=== PATIENT | female | born 1975 | race Caucasian/White ===

== ENCOUNTER 2018-06-01 19:40 | Emergency (ER) | payer SELFPAY ==
[~2018-06-01] VITALS: Ht 157.4 cm; Wt 156.0 kg
[~2018-06-01 19:40] MED LIST: BACTRIM DS 8001 TA1 PO; CEPHALEXIN500 M1 PO; CIPROFLOXACIN500 MG PO; COMPAZINE10 MG PO; CONTRAVE1 TER PO; CORTISPORIN SUS10 ML OT; DARVOCET N 1001 TAB PO; FLONASE ALLERG9.9 ML NAS; Fioricet 325 MG1 TAB PO; HYDROCODONE BIT1 T11 PO; NORCO 5-325 TA1 EACH PO; ZYRTEC10 MG PO
== END 2018-06-01 21:33 | disposition home or self-care (01) ==
LOC: ED 19:40
DX: G43.909 Migraine, unspecified, not intractable, without status migrainosus (principal)

== ENCOUNTER 2018-07-22 14:36 | Emergency (ER) | payer SELFPAY ==
[~2018-07-22] VITALS: Ht 157.4 cm; Wt 153.3 kg
[2018-07-22 15:06] LABS: BASO % 0.4 % (0.0-1.0); EOS # 0.1 10*3/uL (0.0-0.4); EOS % 1.4 % (1.0-4.0); HEMATOCRIT 42.8 % (37.0-47.0); HEMOGLOBIN 14.2 g/dl (12.0-16.0); LYMPH % 28.6 % (27.0-41.0); MEAN CORPUSCULAR HGB 30.9 pg (27.0-31.0); MEAN CORPUSCULAR HGB CONC 33.2 g/dl (33.0-37.0); MONO # 0.7 10*3/uL (0.1-1.0); MONO % 9.4 % (3.0-9.0); NEUT # 4.2 10*3/uL (2.3-7.9); NEUT % 59.9 % (47.0-73.0); PLATELET COUNT AUTOMATED 267 10*3/uL (130-400); RED CELL DISTRI WIDTH 13.2 % (0-14.5)
[2018-07-22 15:17] LABS: BILIRUBIN NEGATIVE (NEGATIVE); BLOOD TRACE-INTACT (NEGATIVE); CLARITY SL CLOUDY (CLEAR); COLOR YELLOW (YELLOW); GLUCOSE NEGATIVE (NEGATIVE); KETONE 1+ (NEGATIVE); LEUKO ESTERASE NEGATIVE (NEGATIVE); NITRITE NEGATIVE (NEGATIVE); PH 5.5 (5.0-9.0); SPECIFIC GRAVITY 1.015 (1.005-1.030); UROBILINOGEN 0.2 E.U./dl (0.2-1.0)
[2018-07-22 15:26] LABS: ALBUMIN 3.9 gm/dl (3.1-4.5); ALKALINE PHOSPHATASE 80 U/L (45-117); BUN 11 mg/dl (7-24); CHLORIDE 106 mmol/L (98-107); CREATININE 0.78 mg/dL (0.55-1.02); LIPASE 70 U/L (73-393); POTASSIUM 3.7 mmol/L (3.5-5.1); SGOT/AST 19 IU/L (3-35); SGPT/ALT 36 U/L (12-78); SODIUM 140 mmol/L (136-145); TOTAL PROTEIN 7.6 gm/dL (6.4-8.2)
[2018-07-22 15:56] LABS: BACTERIA 2+; EPITHELIAL CELLS 16-20
[2018-07-22] MEDS ORDERED: NAPROSYN500 MG PO (16:23)
[2018-07-22] MEDS ORDERED: ZOFRAN4 MG PO (16:23)
== END 2018-07-22 16:27 | disposition home or self-care (01) ==
LOC: ED 14:36
PROVIDERS: Nurse Practitioner Family
DX: K42.9 Umbilical hernia without obstruction or gangrene (principal); R03.0 Elevated blood-pressure reading, without diagnosis of hypertension; G43.909 Migraine, unspecified, not intractable, without status migrainosus; Z79.2 Long term (current) use of antibiotics; Z79.899 Other long term (current) drug therapy

== ENCOUNTER → 2018-12-14 | Outpatient (CLI) | payer SELFPAY ==
[~2018-12-14] MED LIST changes: +Motrin,Rufen800 MG PO; +NAPROSYN500 MG PO; +ROBAXIN500 M1 PO; +SEPTDS PO; +VIIBRYD10 M1 PO; +ZOFRAN4 MG PO
== END | disposition home or self-care (01) ==
LOC: RESCLI 01:17
DX: M54.31 Sciatica, right side (principal); G43.109 Migraine with aura, not intractable, without status migrainosus; K46.9 Unspecified abdominal hernia without obstruction or gangrene; F41.1 Generalized anxiety disorder; F41.0 Panic disorder [episodic paroxysmal anxiety]; M79.7 Fibromyalgia; E66.01 Morbid (severe) obesity due to excess calories; K21.9 Gastro-esophageal reflux disease without esophagitis

== ENCOUNTER → 2019-04-27 | Outpatient (CLI) | payer SELFPAY | END | disposition home or self-care (01) | LOC: RAD 16:24 | DX: M79.642 Pain in left hand (principal) ==

== ENCOUNTER 2019-09-06 09:23 | Emergency (ER) | payer SELFPAY ==
[~2019-09-06] VITALS: Ht 157.4 cm; Wt 141.1 kg
[2019-09-06] MEDS ORDERED: DOXYCYCLINE100 M3 PO (10:56)
[2019-09-06] MEDS ORDERED: TESSALON PERLE100 M1 PO (10:56)
[2019-09-06] MEDS ORDERED: PROVENTIL HFA6.7 GM INH (10:56)
== END 2019-09-06 11:54 | disposition home or self-care (01) ==
LOC: ED 09:23
DX: J40 Bronchitis, not specified as acute or chronic (principal); Z79.899 Other long term (current) drug therapy

== ENCOUNTER → 2020-11-22 | Outpatient (CLI) | payer OTHER ==
[~2020-11-22] MED LIST changes: +DOXYCYCLINE100 M3 PO; +PROVENTIL HFA6.7 GM INH; +TESSALON PERLE100 M1 PO
[2020-11-22 15:10] LABS: BASO % 0.5 % (0.0-1.0); EOS # 0.2 10*3/uL (0.0-0.4); EOS % 2.5 % (1.0-4.0); HEMATOCRIT 41.8 % (37.0-47.0); LYMPH % 30.6 % (27.0-41.0); MEAN CELL VOLUME 93.5 fl (81.0-99.0); MEAN CORPUSCULAR HGB CONC 32.1 g/dl (33.0-37.0); MEAN PLATELET VOLUME 9.8 fl (9.6-12.3); MONO # 0.6 10*3/uL (0.1-1.0); MONO % 9.3 % (3.0-9.0); NEUT # 3.7 10*3/uL (2.3-7.9); NEUT % 56.9 % (47.0-73.0); PLATELET COUNT AUTOMATED 235 10*3/uL (130-400); RED BLOOD COUNT 4.47 10*6/uL (4.10-5.10); RED CELL DISTRI WIDTH 13.1 % (0-14.5); WHITE BLOOD COUNT 6.5 10*3/uL (4.8-10.8)
[2020-11-22 15:28] LABS: ALBUMIN 3.5 gm/dl (3.1-4.5); ALKALINE PHOSPHATASE 68 U/L (45-117); BUN 15 mg/dl (7-24); CHLORIDE 107 mmol/L (98-107); CHOLESTEROL 155 mg/dL (<200); CREATININE 0.68 mg/dL (0.55-1.02); SGOT/AST 14 IU/L (3-35); SGPT/ALT 26 U/L (12-78); SODIUM 140 mmol/L (136-145); TOTAL PROTEIN 6.9 gm/dL (6.4-8.2); VLDL CHOLESTEROL 20 mg/dL (6-40)
[2020-11-22 15:29] LABS: HDL CHOLESTEROL 44 mg/dl (40-60)
[2020-11-22 15:33] LABS: VITAMIN D, 25-HYDROXY 19.7 ng/mL (30-100)
[2020-11-22 16:14] LABS: LDL CHOLESTEROL 91 mg/dL (9-159); TRIGLYCERIDES 99 mg/dl (<150)
== END | disposition home or self-care (01) ==
LOC: LAB 14:51
PROVIDERS: Student in an Organized Health Care Education/Training Program; ATTEND Internal Medicine
DX: E55.9 Vitamin D deficiency, unspecified (principal); E66.01 Morbid (severe) obesity due to excess calories; R53.83 Other fatigue; L65.9 Nonscarring hair loss, unspecified; M79.7 Fibromyalgia; F41.1 Generalized anxiety disorder

== ENCOUNTER → 2020-11-28 | Outpatient (CLI) | payer OTHER | END | disposition home or self-care (01) | LOC: RESCLI 02:06 | PROVIDERS: ATTEND Internal Medicine | DX: Z00.00 Encounter for general adult medical examination without abnormal findings (principal); R53.82 Chronic fatigue, unspecified; E55.9 Vitamin D deficiency, unspecified; K21.9 Gastro-esophageal reflux disease without esophagitis; Z12.31 Encounter for screening mammogram for malignant neoplasm of breast; Z98.890 Other specified postprocedural states; Z79.899 Other long term (current) drug therapy ==

== ENCOUNTER → 2023-05-06 | Outpatient (CLI) | payer OTHER | END | disposition home or self-care (01) | LOC: RAD 13:48 | PROVIDERS: ATTEND Nurse Practitioner | DX: R05.9 Cough, unspecified (principal) ==

== ENCOUNTER 2024-09-04 20:00 | Emergency (ER) | payer OTHER ==
[~2024-09-04] VITALS: Ht 157.4 cm; Wt 127.0 kg
[2024-09-04] MEDS ORDERED: MELOXICAM15 MG PO (23:11)
== END 2024-09-04 23:36 | disposition home or self-care (01) ==
LOC: ED 20:00
DX: M79.672 Pain in left foot (principal); M79.651 Pain in right thigh; Z98.51 Tubal ligation status; Z98.890 Other specified postprocedural states; W19.XXXA Unspecified fall, initial encounter